=== PATIENT | female | born 1985 | race African-American/Black ===

== ENCOUNTER 2017-03-05 00:44 | Inpatient (IN) | payer MEDICAID, OTHER ==
[~2017-03-05] VITALS: Ht 170.2 cm; Wt 61.2 kg
[2017-03-05] MEDS ORDERED: Alum-Mag Hydrox-Simeth 30 mL Suspension PO PRN (05:40)
[2017-03-05] MEDS ORDERED: LORazepam 1 mg Tablet PO PRN (05:40)
[2017-03-05] MEDS ORDERED: Benzocaine-Menthol Lozenge 2/Pkg PO PRN ×2 (05:40→11:40)
[2017-03-05] MEDS ORDERED: Magnesium Hydroxide 10 mL Oral Concentration PO PRN (05:40)
[2017-03-05] MEDS: hydrOXYzine Pamoate 25 mg Capsule PO PRN ×2 (05:57→06:04)
[2017-03-05] MEDS: LORazepam 1 mg Tablet PO PRN (06:03)
[2017-03-05] MEDS ORDERED: SERT20OR6 PO (10:40)
[2017-03-05 15:32] VITALS: BP 124/70; PULSE 70; RESP 16
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
[2017-03-06] MEDS ORDERED: CHOL200025 PO (15:29)
[2017-03-06] MEDS ORDERED: LORA1TAB PO (15:31)
[2017-03-06 18:12] VITALS: BP 112/66; PULSE 85; RESP 18
[2017-03-06] MEDS: LORazepam 1 mg Tablet PO PRN (21:19)
[2017-03-07] MEDS: LORazepam 1 mg Tablet PO PRN (03:59)
[2017-03-07 08:32] VITALS: BP 128/77; PULSE 82; RESP 20
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
[2017-03-08 12:49] VITALS: BP 115/43; PULSE 93; RESP 17
[2017-03-09 13:49] VITALS: BP 134/90; PULSE 86; RESP 16
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
[2017-03-09 18:23] LABS: Creatine Kinase 283 U/L (21-215); TROPONIN T < 0.010 ug/L (0.0-0.011)
[2017-03-10 07:40] VITALS: BP 139/67; PULSE 76; RESP 16
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
[2017-03-11 10:20] VITALS: BP 126/80; PULSE 80; RESP 16
[2017-03-11] MEDS ORDERED: PRAZ1CAP PO (11:06)
[2017-03-11] MEDS ORDERED: LIT150 PO (11:06)
[2017-03-11] MEDS ORDERED: KLO5T PO (11:06)
--- NOTE | 2017-03-11 11:08 | PCM.DIMED ---
Discharge Instructions Date of Service March 11, 2017 Dates of Hospitalization March 05, 2017 at 05:06 Discharge Diagnosis Discharge Diagnosis AXIS I: 1.bipolar mood disorder with psychosis rule out posttraumatic disorder with psychosis. 2. Reported posttraumatic stress disorder. 3. Cannabis abuse. AXIS II: Deferred. AXIS III: None. AXIS IV: Moderate. AXIS V: Global Assessment of Functioning equal to 45 Diet Discharge Diet: No restrictions Activity Discharge Activity: No restrictions Call your provider Call your provider for: Fever or Chills Patient Instructions Patient Instructions I Strongly encouraged patient to follow up with outpatient care: 1-Recommended patient takes medication as prescribed and not alter this unless under the direct care of a provider. 2-Recommend client refrain from recreational drugs and alcohol while taking psychiatric medications. 3-Recommend client start a 12 step program to deal with issues of addiction. 4-Recommend patient attempt to find a therapist or group to deal with impulse control and interpersonal relationship conflicts Follow-up plan Patient to follow up with the [facility]. Appointments per rn case mgr AJ Follow-up with PCP in: 2 weeks César Garland MD March 11, 2017 11:08
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
== END 2017-03-11 11:50 | disposition home or self-care (01) | DRG 753 ==
LOC: MHC 05:06
PROVIDERS: ADMIT Psychiatry & Neurology Psychiatry; ATTEND Psychiatry & Neurology Psychiatry
DX: F31.2 Bipolar disorder, current episode manic severe with psychotic features (principal); R45.851 Suicidal ideations; F43.10 Post-traumatic stress disorder, unspecified; F12.159 Cannabis abuse with psychotic disorder, unspecified